=== PATIENT | female | born 1985 | race Caucasian/White ===

== ENCOUNTER 2019-04-28 07:48 | Emergency (ER) | payer SELFPAY ==
[~2019-04-28] VITALS: Ht 157.5 cm; Wt 50.0 kg
[~2019-04-28 07:48] MED LIST: CETI10CA PO
--- NOTE | 2019-04-28 08:10 | NUR ---
PT ARRIVED TO [facility]. PT STATES "FEELS LIKE SOMEONE IS CONSTANTLY PUSHING ON MY BLADDER. IT YANG AND STINGS. I'VE BEEN TAKING AZO AND ABX ON AND OFF. I HAD A UTI IN NOVEMBER AND THEN HAD AN IN DECEMBER." PT AAO X 4, VSS, DRESSED IN GOWN, POC EDUCATION PROVIDED. CALL LIGHT AND BELONGINGS WITHIN REACH, FALL PRECAUTIONS IN PLACE.
[2019-04-28] MEDS ORDERED: KETOROLAC 30 MG/1 ML IM ONE (08:30)
[2019-04-28] MEDS ORDERED: ONDANSETRON ODT 4 MG PO ONE (08:30)
[2019-04-28] MEDS ORDERED: KETOROLAC 30 MG/1 ML ONE (08:37)
[2019-04-28] MEDS ORDERED: ONDANSETRON ODT 4 MG ONE (08:37)
[2019-04-28 08:41] VITALS: BP 122/71
--- NOTE | 2019-04-28 08:42 | NUR ---
PT MEDICATED WITH 30MG IM TORADOL AND 4MG PO ZOFRAN. PT AAO X 4, VSS, STEADY GAIT TO RESTROOM FOR UA COLLECTION.
--- NOTE | 2019-04-28 08:48 | NUR ---
REPORT GIVEN TO ALVIN BETANCOURT.
--- NOTE | 2019-04-28 08:50 | NUR ---
REPORT FROM SAVANNAH BETANCOURT PATIENT PROVIDED URINE SAMPLE-SENT TO LAB UPDATED ON ESTIMATED POC REPORTS NAUSEA NAD PAIN BOTH IMPROVED TO 2/10
[2019-04-28 08:51] LABS: BASOPHILS # (AUTO) 0.04 x10^3/uL (0-0.1); BASOPHILS % (AUTO) 1 % (0-1); EOSINOPHILS % (AUTO) 5 % (1-7); LYMPHOCYTES # (AUTO) 1.97 x10^3/uL (1-3.4); LYMPHOCYTES % (AUTO) 34 % (22-44); MD NO; MEAN CORPUSCULAR HEMOGLOBIN 31.1 pg (27.0-34.8); MEAN CORPUSCULAR HGB CONC 32.8 g/dL (32.4-35.8); MEAN CORPUSCULAR VOLUME 94.6 fL (80-100); MONOCYTES # (AUTO) 0.44 x10^3/uL (0.2-0.8); MONOCYTES % (AUTO) 8 % (2-9); NEUTROPHILS # (AUTO) 3.02 x10^3/uL (1.8-6.8); NEUTROPHILS % (AUTO) 53 % (42-75); PLATELET COUNT 288 x10^3/uL (130-400); RED BLOOD COUNT 4.35 x10^6/uL (3.82-5.3)
[2019-04-28 09:05] LABS: ANION GAP 6 mmol/L (5-15); CALCIUM 8.3 mg/dL (8.5-10.1); CHLORIDE 111 mmol/L (98-107)
[2019-04-28 09:07] LABS: CULTURE INDICATED? YES; MICROSCOPIC AUTO
== END 2019-04-28 10:01 | disposition home or self-care (01) ==
LOC: ED 09:24
DX: N30.00 Acute cystitis without hematuria (principal); F17.210 Nicotine dependence, cigarettes, uncomplicated
CPT/HCPCS: 36415; 80048; 81001; 82040; 84703; 85025; 87086; 96372; 99283; J1885; Q0162

== ENCOUNTER 2021-06-10 09:14 | Emergency (ER) | payer MEDICAID ==
[~2021-06-10] VITALS: Ht 157.5 cm; Wt 54.0 kg
--- NOTE | 2021-06-10 09:24 | NUR ---
THIS IS A 36 YO F BIB EMS FROM [facility] ER W/ C/O [id number] DAYS. DOCUMENTATION SHOWS PT HAS US DONE AT TRANSFERRING FACILITY SHOWING "IUP AT 7 WEEKS 1 DAY WITH NO HEARTBEAT", EXAM FINDINGS "CLOSED CERVICAL OS NO ACTIVE BLEEDING NO BLOOD IN THE VAGINAL VAULT". PT RESTING ON GURNEY W/ CALL LIGHT IN REACH AND SIDE RAILS UPX2. VSSo, CLAUN. AWAITING ED EVAL.
[2021-06-10 09:59] LABS: BASOPHILS % (AUTO) 1 % (0-1); EOSINOPHILS % (AUTO) 4 % (1-7); LYMPHOCYTES % (AUTO) 25 % (22-44); MEAN CORPUSCULAR HGB CONC 34.8 g/dL (32.4-35.8); MEAN PLATELET VOLUME 6.9 fL (7.4-10.4); MONOCYTES % (AUTO) 10 % (2-9); NEUTROPHILS % (AUTO) 61 % (42-75); PLATELET COUNT 302 x10^3/uL (130-400); RED BLOOD COUNT 4.08 x10^6/uL (3.82-5.3); RED CELL DISTRIBUTION WIDTH 12.8 % (9.6-15.2)
--- NOTE | 2021-06-10 10:21 | NUR ---
ALL TESTS RESULTED. PT IS UP FOR RECHECK AT THIS TIME.
[2021-06-10 11:26] VITALS: BP 100/65
== END 2021-06-10 11:30 | disposition home or self-care (01) ==
LOC: ED 11:15
DX: O20.0 Threatened abortion (principal); F17.200 Nicotine dependence, unspecified, uncomplicated; Z3A.01 Less than 8 weeks gestation of pregnancy
CPT/HCPCS: 36415; 85025; 86901; 99283; 99284